=== PATIENT | female | born 1945 | race Caucasian/White ===

== ENCOUNTER 2024-04-25 18:07 | Emergency (ER) | payer OTHER, SELFPAY ==
[2024-04-25 18:09] VITALS: BP 132/76
--- NOTE | 2024-04-25 18:35 | ED.GENMED ---
History of Present Illness
General
Chief Complaint: Fall
Source: patient
Exam Limitations: none
Time Seen by Provider: 04/25/24 18:31
Travel History
Have you had any contact with someone who has COVID-19?: No
Do you have any symptoms of coronavirus? Fever > 100 degrees, chills, cough, shortness of breath, sore throat, loss of taste or smell, muscle aches, or headache?: No
History of Present Illness
History of Present Illness:
See MDM
Past History
Past History
ED Past Medical History: CAD, HTN, Hypercholesterolemia, MO (X 5) and Other (rheumatoid arthritis, thyroid disorder, lupus.Back pain, Sleep apnea, Cardiac arrest, AAA Calcifications, UTI< )
ED Past Surgical History: Appendectomy, Cardiac (triple bypass surgery) and Gynecological (Patient had hysterectomy and a D&C in the past)
Social History
Tobacco: Former smoker
Alcohol: None
Drug: None
Personal:
Living: with family
Employment: Employed
Family History
Family History: Negative Diabetes or CAD
Phy Exam
Physical Exam
Physical Exam:
See MDM
Course
Orders/Labs/Results
Orders:
Orders
04/25/24 18:17
CT Cervical Spine W/o Iv Contr Urgent
Comment:
Reason For Exam: fall
CT Facial Bones W/o Iv Contras Urgent
Comment:
Reason For Exam: fall
CT Head W/o Iv Contrast Urgent
Comment:
Reason For Exam: fall
04/25/24 19:23
Complete Blood Count/With Diff Urgent
Comprehensive Metabolic Panel Urgent
PTT Urgent
Prothrombin Time Urgent
Vital Signs
Initial and Last Documented VS:
Initial Vital Signs
Temp Pulse Resp BP Pulse Ox
98.3 F 71 20 132/76 98
04/25/24 18:09 04/25/24 18:09 04/25/24 18:09 04/25/24 18:04/25/24 18:09
Last Documented Vital Signs
Temp Pulse Resp BP Pulse Ox
98.3 F 71 20 132/76 98
04/25/24 18:09 04/25/24 18:09 04/25/24 18:04/25/24 18:04/25/24 18:09
MDM/Problems Addressed
Differential Diagnosis Includes:
HPI and MDM Narrative:
78-year-old female presenting with a trip and fall. Patient was walking down the steps and she slid. The right side of her face scraped against the wall and she landed forward. She complains of headache and neck pain. Patient is on Coumadin and
states her recent INR was 2.5
Patient was placed in a cervical collar. CT head, cervical and facial bones was obtained. Patient denies any other complaints such as palpitations, weakness or hip pain
Physical exam
General: Well appearing and non-toxic
HEENT: protecting airway. Mild ecchymosis surrounding right orbit. No subconjunctival hematoma. EOMI
Neck: supple
CV: No evidence of cyanosis
Resp: No accessory muscle use
Abd: Non-distended
Extremities: No deformities. No hip tenderness
Neuro: alert
Psych: Normal affect
Skin: Intact
Problems Addressed including Acute and Chronic Conditions affecting care:
1. Head injury status post fall
Acuity: acute
Prognosis: stable
Details: Given age and being on Coumadin, CT head, cervical spine and facial bones was obtained
Updates
7 PM patient found to have a type II odontoid fracture. Will discuss case with neurosurgery and ultimately transfer soon afterwards, case discussed with neurosurgery Gwendolyn Mensah who suggested transfer to [facility]. Case discussed with
[place] trauma surgeon Dr. Mcgarry who accepted
Differential Diagnosis (but not limited to): Contusion, hemorrhage, fracture
Testing considered: INR but she states it was recently 2.5
Drug therapy (if applicable): OTC meds, please see d/c instruction regarding Rx drugs
Amount and/or Complexity of Data Reviewed
Clinical info obtained from: Patient
External data reviewed: N/A
Labs I independently reviewed (but not limited to): [ ]
Radiology: The CT scan was personally and independently reviewed. In addition, official CT report reviewed.
Pulse Ox: not hypoxic
EKG independently reviewed: N/A
Tugboat Operator: N/A
Critical Care: The high probability of a clinically significant, sudden or life threatening deterioration of the musculoskeletal system(s) required my full and direct attention, intervention and personal management. The aggregate critical care time
was 31 minutes. This time is in addition to time spent performing reported procedures but includes the following:
[x] Data Review and interpretation
[x] Patient assessment and monitoring of vital signs
[x] Documentation
[x] Medication orders and management
Risk of Complication:
Social Determinants of health: Good social support
Discussed with other providers: Neurosurgery, trauma surgeon
Escalation of Care includes Admit/Obs: Given the unstable cervical fracture, patient transferred to trauma center
Occasional wrong word or 'sound a like' substitutions may have occurred due to the inherent limitations of voice recognition software. Read the chart carefully and recognize, using context, where substitutions have occurred.
*Critical Care Note
Total Time (30-74mins, 75-104mins- exclusive of procedures): 31 min
ED Attending Note
-
Portions of this chart may have been created with voice recognition software.� Occasional wrong word or��sound alike� substitutions may have occurred due to the inherent limitations of voice recognition software.
Discharge Plan
Departure
Patient Disposition: Acute Care Hospital
Date of Disposition: 04/25/24
Time of Disposition: 19:42
Discharge Problem:
Odontoid fracture
Prescriptions:
No Action
cyanocobalamin (vitamin B-12) 1,000 MCG tablet
1,000 mcg PO DAILY
docusate sodium 50 MG capsule
50 mg PO BID
potassium chloride [Klor-Con] 20 MEQ packet
10 meq PO HS
metoprolol tartrate 50 MG tablet
50 mg PO BID
folic acid 1 MG tablet
800 mcg PO DAILY
furosemide 20 MG tablet
20 mg PO DAILY
levothyroxine [Synthroid] 112 MCG tablet
112 mcg PO DAILY
diphenhydramine HCl [Banophen] 25 MG capsule
50 mg PO HSPRN PRN (Reason: sleep )
ipratropium-albuterol 3 ML solution for nebulization
3 ml inhalation R QIDPRN PRN (Reason: Shortness of breath) Qty: 120 0RF
warfarin [Jantoven] 3 MG tablet
2.5 mg PO DAILY
Patient Comments:
last inr test on 11/16/23 current weekly dose 17.5mg
rosuvastatin 40 MG tablet
40 mg PO DAILY
ascorbic acid (vitamin C) [Vitamin C With Rosalind Hips] 1,000 MG tablet
1,000 mg PO DAILY
acetaminophen [Tylenol Arthritis Pain] 650 MG tablet extended release
650 mg PO BID
cholecalciferol (vitamin D3) 1,000 UNITS tablet
1,000 units PO DAILY
albuterol sulfate 1.25 mg/3 mL Solution For Nebulization
1.25 mg INHALATION R Q6HPRN PRN (Reason: SOB)
methenamine hippurate 1 gram Tablet
1 g PO DAILY
Hold Instructions: Resume on 10/19/23.
infliximab [Remicade] 100 mg Recon Soln
1 mg IV Q2W
Prolia 60 mg/mL Syringe
60 mg SC [id number]
famotidine [Pepcid AC] 20 mg Tablet
20 mg PO BID
estradiol [Estrace] 0.01 % (0.1 mg/gram) Cream
1 appful VAGINAL MOWEFR
phenyleph-shark bandar oil-mo-pet Ointment
1 applic TN BIDPRN PRN (Reason: hemmorroids)
pantoprazole [Protonix] 40 mg tablet,delayed release (DR/EC)
40 mg PO DAILY
Rx Instructions:
while on high dose steroids
amoxicillin 500 mg Capsule
500 mg PO Q8H 7 Days Qty: 21 0RF
Hospital Transfer
Other hospital: [place]
I certify that the patient requires transfer: Yes
Discussed case with accepting physician: Dr. Mcgarry
Reason for transfer: higher level of care, availability of service and specialties available
Interventions
Interventions:
*Risk Screen - Suicide Last Done: 04/25/24 18:09
*General Assessment Last Done: 04/25/24 18:09
*Neglect/Abuse Screening Last Done: 04/25/24 18:09
ED- Fall Risk Assessment Last Done: 04/25/24 19:06
*ED COVID-19 Vaccine History Last Done: 04/25/24 19:06
ED-Musculoskeletal Assessment Last Done: 04/25/24 19:06
ED- Neurological Assessment Last Done: 04/25/24 19:06
ED-Skin Assessment Last Done: 04/25/24 19:06
Discharge Date and Time
Print Language: HUNGARIAN
[2024-04-25 19:06] VITALS: BMI 27.0
[2024-04-25 19:25] VITALS: BP 151/72
[2024-04-25 19:34] LABS: % Basophils 0.4 % (0-2); % Eosinophils 2.3 % (0-6); % Immature Granulocytes 0.6 % (0-0.5); % Lymphocytes 26.4 % (20.5-51.1); % Monocytes 9.5 % (1.7-9.3); % Neutrophils 60.8 % (42.2-75.2); Absolute Eosinophils 0.2 10^3/uL (0-0.7); Absolute Lymphocytes 1.9 10^3/uL (1.2-3.4); Absolute Monocytes 0.7 10^3/uL (0.1-0.6); Absolute Neutrophils 4.3 10^3/uL (1.4-6.5); Hematocrit 28.6 % (37.0-47.0); Hemoglobin 8.9 g/dL (12.0-16.0); Mean Corp Hgb Conc. 31.1 g/dL (33.0-37.0); Mean Corpuscular Hgb 29.6 pg (27.0-31.0); Mean Platelet Volume 9.2 fL (7.4-10.4); Nucleated Red Blood Cells % 0 %; Platelet Count 388 10^3/uL (130-400); Red Blood Cell Count 3.01 10^6/uL (4.20-5.40); Red Cell Dist. Width 18.3 % (11.5-14.5)
[2024-04-25] MEDS: MORPHINE SULFATE 4 MG IV (19:38)
[2024-04-25 19:41] LABS: INR 2.23
[2024-04-25 19:42] LABS: APTT 46.7 Sec (23.4-35.0)
[2024-04-25 20:00] VITALS: BP 158/71
[2024-04-25 20:45] LABS: ALT (SGPT) 14 U/L (0-35); AST (SGOT) 32 U/L (14-36); Albumin 3.6 g/dl (3.5-5.0); Alkaline Phosphatase 131 U/L (38-126); Blood Urea Nitrogen 26 mg/dl (7-17); Calcium 9.7 mg/dl (8.4-10.2); Carbon Dioxide 16 mmol/L (22-30); Chloride 112 mmol/L (98-107); Estimated Creatinine Clearance 56 ml/min; Glucose 78 mg/dl (70-99); Potassium 4.6 mmol/L (3.5-5.1); Sodium 136 mmol/L (135-145); Total Bilirubin 0.4 mg/dl (0.2-1.3); Total Protein 9.3 g/dl (6.3-8.2); eGFR > 60.00
== END 2024-04-25 20:27 | disposition short-term general hospital (02) ==
LOC: EMR 18:07
PROVIDERS: EMERGENCY PHYSICIAN Student in an Organized Health Care Education/Training Program; FAMILY PHYSICIAN Family Medicine; REFERRING PHYSICIAN Family Medicine
DX: S12.110A Anterior displaced Type II dens fracture, initial encounter for closed fracture (principal); S12.031A Nondisplaced posterior arch fracture of first cervical vertebra, initial encounter for closed fracture; S00.11XA Contusion of right eyelid and periocular area, initial encounter; R51.9 Headache, unspecified; M54.2 Cervicalgia; W10.9XXA Fall (on) (from) unspecified stairs and steps, initial encounter; I25.10 Atherosclerotic heart disease of native coronary artery without angina pectoris; E78.00 Pure hypercholesterolemia, unspecified; I10 Essential (primary) hypertension; M06.9 Rheumatoid arthritis, unspecified; E07.9 Disorder of thyroid, unspecified; M32.9 Systemic lupus erythematosus, unspecified; I71.40 Abdominal aortic aneurysm, without rupture, unspecified; M54.9 Dorsalgia, unspecified; G47.30 Sleep apnea, unspecified; I25.2 Old myocardial infarction; Z86.74 Personal history of sudden cardiac arrest; Z87.440 Personal history of urinary (tract) infections; Z87.891 Personal history of nicotine dependence; Z95.1 Presence of aortocoronary bypass graft; Z79.01 Long term (current) use of anticoagulants; Z88.2 Allergy status to sulfonamides; Z88.8 Allergy status to other drugs, medicaments and biological substances; Z91.048 Other nonmedicinal substance allergy status
CPT/HCPCS: 99291; 96374; 70450; 70486; 72125; 80053; 85025; 85610; 85730

== ENCOUNTER → 2024-11-21 15:48 | Outpatient (REF) | payer OTHER, SELFPAY ==
[2024-11-21 17:01] LABS: PT 47.6 Sec (11.4-14.6)
[2024-11-21 17:37] LABS: INR 5.28
== END ==
LOC: REG 15:48
PROVIDERS: ATTENDING PHYSICIAN Internal Medicine Cardiovascular Disease; FAMILY PHYSICIAN Family Medicine
DX: I48.0 Paroxysmal atrial fibrillation (principal)
CPT/HCPCS: 36415; 85610

== ENCOUNTER → 2025-01-14 15:24 | Outpatient (REF) | payer OTHER, SELFPAY ==
[2025-01-14 17:07] LABS: INR 1.27; PT 16.5 Sec (11.4-14.6)
== END ==
LOC: REG 15:24
PROVIDERS: ATTENDING PHYSICIAN Internal Medicine Cardiovascular Disease; FAMILY PHYSICIAN Family Medicine
DX: I48.0 Paroxysmal atrial fibrillation (principal)
CPT/HCPCS: 36415; 85610

== ENCOUNTER → 2025-01-20 11:28 | Outpatient (REF) | payer OTHER, SELFPAY ==
[2025-01-20 12:16] LABS: INR 2.57; PT 27.6 Sec (11.4-14.6)
== END ==
LOC: REG 11:28
PROVIDERS: ATTENDING PHYSICIAN Internal Medicine Cardiovascular Disease; FAMILY PHYSICIAN Family Medicine
DX: I48.0 Paroxysmal atrial fibrillation (principal)
CPT/HCPCS: 36415; 85610

== ENCOUNTER → 2025-02-06 10:48 | Outpatient (REF) | payer OTHER, SELFPAY ==
[2025-02-06 12:02] LABS: INR 3.09; PT 31.7 Sec (11.4-14.6)
== END ==
LOC: REG 10:48
PROVIDERS: ATTENDING PHYSICIAN Internal Medicine Cardiovascular Disease; FAMILY PHYSICIAN Family Medicine
DX: I48.0 Paroxysmal atrial fibrillation (principal); R79.1 Abnormal coagulation profile
CPT/HCPCS: 36415; 85610

== ENCOUNTER 2025-02-16 07:40 | Outpatient (RCR) | payer OTHER, SELFPAY ==
[2025-02-16 08:25] VITALS: BP 97/50
[2025-02-16 08:42] VITALS: BP 125/51
[2025-02-16 10:10] VITALS: BP 114/47
[2025-02-16 10:20] VITALS: BP 114/47
[2025-02-16 10:37] VITALS: BP 95/41
[2025-02-16 12:26] VITALS: BP 107/49
== END 2025-02-16 15:30 | disposition home or self-care (01) ==
LOC: OID 07:40
PROVIDERS: ATTENDING PHYSICIAN Family Medicine
DX: D64.9 Anemia, unspecified (principal)
CPT/HCPCS: 36415; 36430; 86850; 86900; 86901; 86920; P9016

== ENCOUNTER → 2025-03-03 12:31 | Outpatient (REF) | payer OTHER, SELFPAY | LOC: HWRCS 12:31 | PROVIDERS: ATTENDING PHYSICIAN Internal Medicine Cardiovascular Disease; FAMILY PHYSICIAN Family Medicine | DX: I36.1 Nonrheumatic tricuspid (valve) insufficiency (principal) | CPT/HCPCS: 93306 ==

== ENCOUNTER → 2025-03-09 16:02 | Outpatient (REF) | payer OTHER, SELFPAY ==
[2025-03-09 14:15] LABS: % Basophils 0.8 % (0-2); % Eosinophils 5.1 % (0-6); % Immature Granulocytes 0.3 % (0-0.5); % Lymphocytes 50.8 % (20.5-51.1); % Monocytes 13.1 % (1.7-9.3); % Neutrophils 29.9 % (42.2-75.2); Absolute Basophils 0.1 10^3/uL (0-0.2); Absolute Eosinophils 0.3 10^3/uL (0-0.7); Absolute Monocytes 0.8 10^3/uL (0.1-0.6); Absolute Neutrophils 1.8 10^3/uL (1.4-6.5); Hematocrit 28.6 % (37.0-47.0); Mean Corp Hgb Conc. 31.5 g/dL (33.0-37.0); Mean Corpuscular Volume 89.1 fL (81.0-99.0); Mean Platelet Volume 9.2 fL (7.4-10.4); Platelet Count 286 10^3/uL (130-400); Red Blood Cell Count 3.21 10^6/uL (4.20-5.40); Red Cell Dist. Width 18.9 % (11.5-14.5); White Blood Cell Count 5.9 10^3/uL (4.8-10.8)
== END ==
LOC: OIDL 16:02
PROVIDERS: ATTENDING PHYSICIAN Internal Medicine Hematology & Oncology
DX: D63.8 Anemia in other chronic diseases classified elsewhere (principal)
CPT/HCPCS: 85025

== ENCOUNTER → 2025-03-16 13:56 | Outpatient (REF) | payer OTHER, SELFPAY ==
[2025-03-16 14:08] LABS: % Basophils 0.5 % (0-2); % Eosinophils 5.6 % (0-6); % Immature Granulocytes 0.2 % (0-0.5); % Monocytes 6.7 % (1.7-9.3); Absolute Eosinophils 0.3 10^3/uL (0-0.7); Absolute Lymphocytes 2.4 10^3/uL (1.2-3.4); Absolute Monocytes 0.4 10^3/uL (0.1-0.6); Absolute Neutrophils 2.9 10^3/uL (1.4-6.5); Hematocrit 26.2 % (37.0-47.0); Hemoglobin 8.2 g/dL (12.0-16.0); Mean Corp Hgb Conc. 31.3 g/dL (33.0-37.0); Mean Corpuscular Hgb 28.1 pg (27.0-31.0); Mean Corpuscular Volume 89.7 fL (81.0-99.0); Mean Platelet Volume 9.2 fL (7.4-10.4); Platelet Count 257 10^3/uL (130-400); Red Blood Cell Count 2.92 10^6/uL (4.20-5.40); Red Cell Dist. Width 20.6 % (11.5-14.5); White Blood Cell Count 6.1 10^3/uL (4.8-10.8)
== END ==
LOC: OIDL 13:56
PROVIDERS: ATTENDING PHYSICIAN Internal Medicine Hematology & Oncology
DX: D63.8 Anemia in other chronic diseases classified elsewhere (principal)
CPT/HCPCS: 85025

== ENCOUNTER → 2025-03-20 13:40 | Outpatient (REF) | payer OTHER, SELFPAY ==
[2025-03-20 13:59] LABS: Hematocrit 28.4 % (37.0-47.0); Hemoglobin 9.2 g/dL (12.0-16.0); Mean Corp Hgb Conc. 32.4 g/dL (33.0-37.0); Mean Corpuscular Hgb 28.7 pg (27.0-31.0); Mean Corpuscular Volume 88.5 fL (81.0-99.0); Mean Platelet Volume 9.4 fL (7.4-10.4); Platelet Count 246 10^3/uL (130-400); Red Blood Cell Count 3.21 10^6/uL (4.20-5.40); Red Cell Dist. Width 20.9 % (11.5-14.5); White Blood Cell Count 4.6 10^3/uL (4.8-10.8)
[2025-03-20 14:18] LABS: % Basophils 0.9 % (0-2); % Eosinophils 5.9 % (0-6); % Immature Granulocytes 0.7 % (0-0.5); % Lymphocytes 53.8 % (20.5-51.1); % Monocytes 7.3 % (1.7-9.3); % Neutrophils 31.4 % (42.2-75.2); Absolute Eosinophils 0.3 10^3/uL (0-0.7); Absolute Lymphocytes 2.5 10^3/uL (1.2-3.4); Absolute Monocytes 0.3 10^3/uL (0.1-0.6); Absolute Neutrophils 1.4 10^3/uL (1.4-6.5); Nucleated Red Blood Cells % 0 %
== END ==
LOC: OIDL 13:40
PROVIDERS: ATTENDING PHYSICIAN Internal Medicine Hematology & Oncology
DX: D63.8 Anemia in other chronic diseases classified elsewhere (principal)
CPT/HCPCS: 85025

== ENCOUNTER → 2025-06-19 14:42 | Outpatient (REF) | payer OTHER, SELFPAY | LOC: HWRAD 14:42 | PROVIDERS: ATTENDING PHYSICIAN Internal Medicine Critical Care Medicine; FAMILY PHYSICIAN Family Medicine | DX: J84.9 Interstitial pulmonary disease, unspecified (principal) | CPT/HCPCS: 71046 ==

== ENCOUNTER → 2025-07-24 13:17 | Outpatient (REF) | payer OTHER, SELFPAY | LOC: HWRAD 13:17 | PROVIDERS: ATTENDING PHYSICIAN Internal Medicine; FAMILY PHYSICIAN Family Medicine | DX: M81.0 Age-related osteoporosis without current pathological fracture (principal) | CPT/HCPCS: 77080 ==